=== PATIENT | male | born 1970 | race Caucasian/White ===

== ENCOUNTER 2020-09-13 07:38 | Outpatient (CLI) | payer BC, SELFPAY ==
[2020-09-13 07:53] VITALS: BP 145/91; PULSE 58; TEMP 37.2; O2SAT 97
--- NOTE | 2020-09-13 08:01 | AMB.MCA ---
Patient Information Referred by: Dr. Winters Symptom onset date: 09/05/20 COVID 19 common symptoms: positive chills, cough, body aches, loss of sense of smell and/or taste, throat pain and nasal congestion Severity: mild Treatment prior to arrival: none [facility] COVID test results: No Data to Display outside results available, scanned Criteria/Plan Inclusion/Exclusion Criteria weight >/= 40kg, + direct test </= 10 days ago and symptom onset </= 10 days ago has diabetes not requiring hospitalization, not requiring oxygen (if not chronically on oxygen) and no increase oxygen requirement (if chronically on oxygen) Patient education patient/family/caregiver received/reviewed fact sheet, Emergency Use Authorization/unapproved drug status discussed with patient/family/caregiver, alternatives to this treatment discussed with patient/family/caregiver, risks and benefits of medication reviewed with patient/family/caregiver, patient/family/caregiver given opportunity for questions, which were answered and patient consents to receiving Monoclonal Antibody Treatment Plan for treatment Meets criteria for Monoclonal Antibody infusion Ordering Monoclonal Antibody infusion for today
[2020-09-13 09:12] VITALS: BP 111/66; PULSE 58; TEMP 37.1; O2SAT 97
[2020-09-13 10:12] VITALS: BP 115/72; PULSE 59; TEMP 37.1; O2SAT 97
== END 2020-09-13 10:12 | disposition home or self-care (01) ==
PROVIDERS: Visit Provider Family Medicine
DX: U07.1 COVID-19 (principal)

== ENCOUNTER → 2022-05-23 11:21 | Outpatient (BNVA) | payer BC, SELFPAY | PROVIDERS: PCP Family Medicine; Visit Provider Family Medicine | DX: E11.9 Type 2 diabetes mellitus without complications (principal); E78.5 Hyperlipidemia, unspecified | CPT/HCPCS: 80053; 80061; 83036 ==

== ENCOUNTER → 2023-06-21 14:33 | Outpatient (BNVA) | payer SELFPAY | PROVIDERS: PCP Family Medicine; Visit Provider Family Medicine | DX: E78.5 Hyperlipidemia, unspecified (principal); E11.9 Type 2 diabetes mellitus without complications; Z13.6 Encounter for screening for cardiovascular disorders | CPT/HCPCS: 80053; 80061; 83036 ==

== ENCOUNTER → 2024-06-12 08:22 | Outpatient (BNVA) | payer BC, SELFPAY | PROVIDERS: PCP Family Medicine; Visit Provider Family Medicine | DX: E78.5 Hyperlipidemia, unspecified (principal); E11.9 Type 2 diabetes mellitus without complications | CPT/HCPCS: 80053; 80061; 83036; 85025 ==